=== PATIENT | female | born 1960 | race Caucasian/White ===

== ENCOUNTER → 2017-07-16 | Outpatient (CLI) | payer OTHER ==
[~2017-07-16] MED LIST: ALIEVE PO; OMEP20CA3 PO; tylenol
[2017-07-16 20:11] LABS: THYROID PEROXIDASE ANTIBODY 28.2 U/ML (<60.0)
[2017-07-16 20:21] LABS: FREE T4 1.05 NG/DL (0.76-1.46)
== END ==
LOC: M LABDRAW1 14:35
PROVIDERS: ATTEND Internal Medicine Endocrinology, Diabetes & Metabolism
DX: R94.6 Abnormal results of thyroid function studies (principal)

== ENCOUNTER 2023-02-07 16:41 | Observation (INO) | payer OTHER ==
[~2023-02-07] VITALS: Ht 158.8 cm; Wt 97.7 kg
[2023-02-07] MEDS ORDERED: ERGO500029 PO (16:53)
[2023-02-07 17:47] LABS: BASO # 0.1 10^3/uL (0.0-0.2); BASO % 0.6 % (0.0-1.0); EOS # 0.3 10^3/uL (0.0-0.5); EOS % 1.9 % (0.0-3.0); HEMATOCRIT 38.3 % (36.0-47.0); HEMOGLOBIN 11.8 g/dl (12.0-15.5); LYMPH # 3.7 10^3/uL (1.5-5.0); LYMPH % 25.3 % (24.0-44.0); MEAN CORPUSCULAR HEMOGLOBIN 26.3 pg (27.0-33.0); MEAN CORPUSCULAR HGB CONC 30.8 g/dl (32.0-36.5); MEAN CORPUSCULAR VOLUME 85.3 fl (80.0-96.0); MONO # 0.8 10^3/uL (0.0-0.8); MONO % 5.4 % (2.0-8.0); NEUTROPHILS # 9.6 10^3/uL (1.5-8.5); NEUTROPHILS % 66.3 % (36.0-66.0); PLATELET COUNT, AUTOMATED 411 10^3/uL (150-450); RED BLOOD COUNT 4.49 10^6/uL (4.00-5.40); WHITE BLOOD COUNT 14.5 10^3/uL (4.0-10.0)
[2023-02-07 18:06] LABS: INR 1.03; PROTHROMBIN TIME 13.7 SECONDS (12.5-14.5)
[2023-02-07 18:07] LABS: PARTIAL THROMBOPLASTIN TIME 28.1 SECONDS (24.8-34.2)
[2023-02-07 18:08] LABS: BLOOD UREA NITROGEN 25 MG/DL (9-23); CALCIUM LEVEL 9.5 MG/DL (8.3-10.6); CARBON DIOXIDE LEVEL 26 MMOL/L (20-31); CHLORIDE LEVEL 104 MMOL/L (98-107); CREATININE FOR GFR 0.85 MG/DL (0.55-1.30); GLOMERULAR FILTRATION RATE > 60.0 (>45); GLUCOSE, FASTING 107 MG/DL (74-106); POTASSIUM SERUM 4.6 MMOL/L (3.5-5.1); SODIUM LEVEL 137 MMOL/L (136-145)
[2023-02-07] MEDS ORDERED: ACETAMINOPHEN TAB 650MG DOSE (2X325MG) PO PRN (19:15)
[2023-02-07] MEDS ORDERED: HOME MED LIST COMPLETE! XX SCH (19:25)
[2023-02-07 19:38] LABS: CHOLESTEROL LEVEL 190 MG/DL (<200); CHOLESTEROL RISK RATIO 2.62 (<5); HDL CHOLESTEROL 72.5 MG/DL (>40); LDL CHOLESTEROL 104.3 MG/DL (<100); NON-HDL-C 117.5 MG/DL; TRIGLYCERIDES LEVEL 66 MG/DL (<150)
[2023-02-07 19:41] LABS: HEMOGLOBIN A1c 7.3 % (4.0-6.0)
[2023-02-07 20:14] VITALS: BP 178/67; TEMP 98.2; O2SAT 99
[2023-02-08 05:37] VITALS: BP 132/51; TEMP 97.9; O2SAT 96
[2023-02-08 06:06] LABS: HEMATOCRIT 34.9 % (36.0-47.0); HEMOGLOBIN 10.9 g/dl (12.0-15.5); MEAN CORPUSCULAR HGB CONC 31.2 g/dl (32.0-36.5); MEAN CORPUSCULAR VOLUME 83.3 fl (80.0-96.0); PLATELET COUNT, AUTOMATED 387 10^3/uL (150-450); RED BLOOD COUNT 4.19 10^6/uL (4.00-5.40); WHITE BLOOD COUNT 11.7 10^3/uL (4.0-10.0)
[2023-02-08 06:34] LABS: ALBUMIN 3.3 G/DL (3.2-5.2); ALKALINE PHOSPHATASE 103 U/L (46-116); ALT/SGPT 14 U/L (7.0-40); AST/SGOT 10 U/L (<34); BILIRUBIN,TOTAL 0.4 MG/DL (0.3-1.2); BLOOD UREA NITROGEN 20 MG/DL (9-23); CALCIUM LEVEL 8.8 MG/DL (8.3-10.6); CARBON DIOXIDE LEVEL 27 MMOL/L (20-31); CHLORIDE LEVEL 105 MMOL/L (98-107); CREATININE FOR GFR 0.76 MG/DL (0.55-1.30); GLOMERULAR FILTRATION RATE > 60.0 (>45); GLUCOSE, FASTING 88 MG/DL (74-106); MAGNESIUM LEVEL 2.1 MG/DL (1.8-2.4); POTASSIUM SERUM 4.6 MMOL/L (3.5-5.1); SODIUM LEVEL 139 MMOL/L (136-145); TOTAL PROTEIN 6.3 G/DL (5.7-8.2)
[2023-02-08 10:36] LABS: FREE T4 1.03 NG/DL (0.89-1.76); THYROID STIMULATING HORMONE 2.349 uIU/ML (0.55-4.78)
[2023-02-08 11:04] VITALS: BP 166/71
[2023-02-08] MEDS: ATORVASTATIN 20 MG TAB PO SCH (11:06)
[2023-02-08] MEDS: metFORMIN (GLUCOPHAGE) 500MG TAB PO SCH (11:06)
[2023-02-08 12:03] LABS: ERYTHROCYTE SEDIMENTATION RATE 49 mm/hr (0-30)
[2023-02-08] MEDS: predniSONE 20 MG TAB PO SCH (13:04)
[2023-02-08 14:00] VITALS: BP 138/60; TEMP 97.9; O2SAT 96
[2023-02-08 22:00] VITALS: BP 148/70; TEMP 98.1; O2SAT 96
[2023-02-09 06:00] VITALS: BP 142/68; TEMP 97.9; O2SAT 97
[2023-02-09 06:07] LABS: BASO % 0.2 % (0.0-1.0); EOS % 0.3 % (0.0-3.0); HEMATOCRIT 37.5 % (36.0-47.0); HEMOGLOBIN 11.7 g/dl (12.0-15.5); LYMPH # 2.9 10^3/uL (1.5-5.0); LYMPH % 20.4 % (24.0-44.0); MEAN CORPUSCULAR HEMOGLOBIN 26.3 pg (27.0-33.0); MEAN CORPUSCULAR HGB CONC 31.2 g/dl (32.0-36.5); MEAN CORPUSCULAR VOLUME 84.3 fl (80.0-96.0); MONO # 0.9 10^3/uL (0.0-0.8); MONO % 6.3 % (2.0-8.0); NEUTROPHILS # 10.1 10^3/uL (1.5-8.5); NEUTROPHILS % 72.2 % (36.0-66.0); PLATELET COUNT, AUTOMATED 389 10^3/uL (150-450); RED BLOOD COUNT 4.45 10^6/uL (4.00-5.40)
[2023-02-09 06:18] LABS: ERYTHROCYTE SEDIMENTATION RATE 61 mm/hr (0-30)
[2023-02-09 06:43] LABS: BLOOD UREA NITROGEN 17 MG/DL (9-23); CALCIUM LEVEL 9.7 MG/DL (8.3-10.6); CARBON DIOXIDE LEVEL 28 MMOL/L (20-31); CHLORIDE LEVEL 104 MMOL/L (98-107); CREATININE FOR GFR 0.74 MG/DL (0.55-1.30); GLOMERULAR FILTRATION RATE > 60.0 (>45); GLUCOSE, FASTING 108 MG/DL (74-106); POTASSIUM SERUM 4.8 MMOL/L (3.5-5.1); SODIUM LEVEL 138 MMOL/L (136-145)
[2023-02-09] MEDS ORDERED: PRED20TA PO ×2 (10:44→13:57)
[2023-02-09] MEDS ORDERED: LISI20TA33 PO (10:44)
[2023-02-09] MEDS ORDERED: METF-838 PO (10:44)
[2023-02-09] MEDS ORDERED: ATOR1TAB21 PO (10:44)
[2023-02-09] MEDS ORDERED: LIDOCAINE 1% SDV 30ML VIAL As Ordered ONE (11:42)
[2023-02-09] MEDS ORDERED: ceFAZolin 2 GM/D5W 50 ML IV BAG As Ordered ONE (12:16)
[2023-02-09] MEDS ORDERED: fentaNYL 100 MCG/2 ML INJECTION As Ordered ONE (12:20)
[2023-02-09] MEDS ORDERED: MIDAZOLAM INJ 2MG/2ML VIAL As Ordered ONE (12:20)
[2023-02-09] MEDS ORDERED: propofoL 200 MG/20 ML VIAL As Ordered ONE (12:20)
[2023-02-09] MEDS ORDERED: ONDANSETRON 4MG 2ML VIAL As Ordered ONE (12:20)
[2023-02-09] MEDS ORDERED: LIDOCAINE 2% 100MG/5ML SDV (FOR ANES.) As Ordered ONE (12:20)
[2023-02-09] MEDS ORDERED: ePHEDrine SULFATE 25 MG/5 ML(5MG/ML) SYRINGE As Ordered ONE (12:37)
[2023-02-09 13:30] VITALS: BP 138/65; TEMP 96.6; O2SAT 97
[2023-02-09 14:00] VITALS: BP 135/64; TEMP 97.9; O2SAT 99
[2023-02-09] MEDS: metFORMIN (GLUCOPHAGE) 500MG TAB PO SCH (14:11)
[2023-02-09] MEDS: ATORVASTATIN 20 MG TAB PO SCH (14:11)
[2023-02-09] MEDS: predniSONE 20 MG TAB PO SCH (14:14)
== END 2023-02-09 15:14 | disposition home or self-care (01) ==
LOC: M ED 16:41 → M ED INP 19:15 → M MSPAV 20:17
PROVIDERS: ADMIT Internal Medicine; ATTEND Internal Medicine
DX: R42 Dizziness and giddiness (principal); H53.8 Other visual disturbances; H57.11 Ocular pain, right eye; I72.8 Aneurysm of other specified arteries; I10 Essential (primary) hypertension; E11.9 Type 2 diabetes mellitus without complications; E78.5 Hyperlipidemia, unspecified; E55.9 Vitamin D deficiency, unspecified; I83.90 Asymptomatic varicose veins of unspecified lower extremity; D72.829 Elevated white blood cell count, unspecified; R70.0 Elevated erythrocyte sedimentation rate; K21.9 Gastro-esophageal reflux disease without esophagitis; Z79.899 Other long term (current) drug therapy; F17.219 Nicotine dependence, cigarettes, with unspecified nicotine-induced disorders; Z90.49 Acquired absence of other specified parts of digestive tract
CPT/HCPCS: 36415; 37609; 70450; 70544; 70551; 71045; 80048; 80053; 80061; 83036; 83735; 84439; 84443; 85025; 85027; 85610; 85652; 85730; 86140; 87635; 88305; 93005; 93041; 93306; 93880; 94760; 97161; 97530; 99285; J0690; J1100; J2250; J2405; J3010; J7512

== ENCOUNTER 2023-04-07 09:06 | Day surgery (SDC) | payer OTHER ==
[~2023-04-07] VITALS: Ht 157.5 cm; Wt 96.2 kg
[~2023-04-07 09:06] MED LIST changes: +ATOR1TAB21 PO; +BSS IRRIG/VANCO(10MG)/TOBRA(5MG)/EPINEPH(1:1000-0.5CC)500ML BAG-ORONLY IR ONE; +CEFUROXIME 1MG/0.1ML INTRACAMERAL INJ As Ordered ONE; +CYCLOPENTOLATE 1% OPHTH SOLN 2ML BTL OD SCH; +ERGO500029 PO; +LIDOCAINE 1% SDV 5ML VIAL As Ordered ONE; +LIDOCAINE 3.5 % 1ML OPHTH TOPICAL GEL OU ONE; +LISI10TA22 PO; +LISI20TA33 PO; +METF-838 PO; +OFLOXACIN 0.3 % (OCUFLOX) OPTH SOL 5ML OD ONE; +PHENYLEPHRINE 10% OPHTH SOL 5ML OD PRN; +PHENYLEPHRINE 2.5% OPHTH SOL 2ML OD SCH; +PRED20TA PO; +TROPICAMIDE 1% OPHTH SOLN 15ML OD SCH
[2023-04-07] MEDS ORDERED: MIDAZOLAM INJ 2MG/2ML VIAL As Ordered ONE (11:41)
[2023-04-07 12:20] VITALS: BP 178/84; TEMP 97; O2SAT 100
[2023-04-22] MEDS ORDERED: METF-838 PO (07:47)
[2023-04-22] MEDS ORDERED: LISI20TA33 PO (07:47)
[2023-04-22] MEDS ORDERED: ATOR1TAB21 PO (07:47)
== END 2023-04-07 12:25 | disposition home or self-care (01) ==
LOC: M SDC 09:06
PROVIDERS: ATTEND Ophthalmology
DX: H25.11 Age-related nuclear cataract, right eye (principal); I10 Essential (primary) hypertension; K21.9 Gastro-esophageal reflux disease without esophagitis; M19.90 Unspecified osteoarthritis, unspecified site; F17.210 Nicotine dependence, cigarettes, uncomplicated; Z88.5 Allergy status to narcotic agent; Z79.899 Other long term (current) drug therapy
CPT/HCPCS: 66984; J0697; J2250; V2632

== ENCOUNTER → 2024-03-01 | Outpatient (CLI) | payer MEDICARE ==
[~2024-03-01] MED LIST changes: -BSS IRRIG/VANCO(10MG)/TOBRA(5MG)/EPINEPH(1:1000-0.5CC)500ML BAG-ORONLY IR ONE; -CEFUROXIME 1MG/0.1ML INTRACAMERAL INJ As Ordered ONE; -CYCLOPENTOLATE 1% OPHTH SOLN 2ML BTL OD SCH; -LIDOCAINE 1% SDV 5ML VIAL As Ordered ONE; -LIDOCAINE 3.5 % 1ML OPHTH TOPICAL GEL OU ONE; -OFLOXACIN 0.3 % (OCUFLOX) OPTH SOL 5ML OD ONE; -PHENYLEPHRINE 10% OPHTH SOL 5ML OD PRN; -PHENYLEPHRINE 2.5% OPHTH SOL 2ML OD SCH; -TROPICAMIDE 1% OPHTH SOLN 15ML OD SCH
== END ==
LOC: M PLAIMG 14:46
PROVIDERS: ATTEND Nurse Practitioner Family
DX: I67.1 Cerebral aneurysm, nonruptured (principal); I65.23 Occlusion and stenosis of bilateral carotid arteries